=== PATIENT | male | born 1965 | race Caucasian/White ===

== ENCOUNTER → 2016-08-13 | Outpatient (CLI) | payer MEDICARE, MEDICAID ==
[~2016-08-13] MED LIST: AZIT250T5 PO; BISA10SU6 RC; CALA120L5 TOP; GFN600TCR PO; LORA10TA7 PO; MNTL10T PO; MULT-955 PO; NYST30OI6 TOP; OXYB5TAB9 PO; PHN100C PO; SERT100T8 PO
[2016-08-13 13:21] LABS: BASOPHILS % (AUTO) 1 % (0-2); EOSINOPHILS # (AUTO) 0.4 10^3uL; EOSINOPHILS % (AUTO) 5 % (0-4); MEAN CORPUSCULAR HEMOGLOBIN 31.5 PG (26.0-34.0); MEAN CORPUSCULAR HGB CONC 35.6 g/dL (31.0-37.0); MEAN CORPUSCULAR VOLUME 88 FL (80-100); MEAN PLATELET VOLUME 8.7 FL (6.0-9.5); MONOCYTES # (AUTO) 0.5 X10^3; MONOCYTES % (AUTO) 8 % (3-11); NEUTROPHILS # (AUTO) 3.8 X10^3; NEUTROPHILS % (AUTO) 57 % (51-67); PLATELET COUNT 374 10^3uL (150-450); WHITE BLOOD COUNT 6.77 10^3uL (4.0-11.0)
[2016-08-13 13:44] LABS: ALBUMIN 4.2 g/dL (3.4-5.0); ANION GAP 17.7 MEQ/L (3-15); CALCULATED IONIZED CALCIUM 3.8 mg/dL (3.8-4.6); TOTAL PROTEIN 7.7 g/dL (6.4-8.5)
== END ==
LOC: LAB 13:05
PROVIDERS: ATTEND Family Medicine
DX: R56.9 Unspecified convulsions (principal)
CPT/HCPCS: 36415; 80053; 80185; 85025

== ENCOUNTER 2016-10-06 22:13 | Emergency (ER) | payer MEDICARE, MEDICAID ==
[~2016-10-06] VITALS: Ht 154.9 cm; Wt 58.1 kg
[2016-10-06 23:21] VITALS: BP 145/85
== END 2016-10-06 23:20 | disposition home or self-care (01) ==
LOC: ED 22:14
DX: S00.03XA Contusion of scalp, initial encounter (principal); W06.XXXA Fall from bed, initial encounter
CPT/HCPCS: 99281; 99282

== ENCOUNTER → 2016-10-06 | Outpatient (CLI) | payer MEDICARE, MEDICAID | LOC: EMS 21:49 | DX: Z53.20 Procedure and treatment not carried out because of patient's decision for unspecified reasons (principal) ==